=== PATIENT | female | born 1965 | race Caucasian/White ===

== ENCOUNTER → 2017-08-25 | Day surgery (SDC) | payer OTHER | LOC: MSO 09:02 | DX: Z12.11 Encounter for screening for malignant neoplasm of colon (principal); Z80.0 Family history of malignant neoplasm of digestive organs; K57.30 Diverticulosis of large intestine without perforation or abscess without bleeding | CPT/HCPCS: 00810; J3010; J7120 ==

== ENCOUNTER → 2018-02-08 | Outpatient (CLI) | payer OTHER | LOC: VAS 15:44 | DX: R00.1 Bradycardia, unspecified (principal); R06.02 Shortness of breath; R53.83 Other fatigue ==

== ENCOUNTER → 2018-02-11 | Outpatient (CLI) | payer OTHER ==
[~2018-02-11] VITALS: Ht 167.6 cm; Wt 63.6 kg
[2018-02-11 17:49] VITALS: BP 90/58
== END ==
LOC: AMSURD 17:27 → RAD 17:27
DX: R00.1 Bradycardia, unspecified (principal); E78.00 Pure hypercholesterolemia, unspecified; Z86.79 Personal history of other diseases of the circulatory system

== ENCOUNTER → 2020-11-30 | Outpatient (CLI) | payer OTHER ==
[2018-02-11 17:49] VITALS: BP 90/58
== END ==
LOC: LAB 07:36
DX: U07.1 COVID-19 (principal)

== ENCOUNTER → 2024-08-19 | Outpatient (CLI) | payer OTHER ==
[~2024-08-19] MED LIST: Iohexol 300 - 100 ML VIAL IV ONE
== END ==
LOC: RAD 08:45
DX: K57.90 Diverticulosis of intestine, part unspecified, without perforation or abscess without bleeding (principal)
CPT/HCPCS: Q9967